=== PATIENT | female | born 1990 | race Hispanic/Latino ===

== ENCOUNTER 2017-12-09 20:50 | Emergency (ER) | payer OTHER ==
[~2017-12-09] VITALS: Ht 165.1 cm; Wt 73.6 kg
[2017-12-09 21:19] LABS: HEMATOCRIT 38.5 % (36.0-46.0); HEMOGLOBIN 13.7 G/DL (11.9-15.5); MCH 31.6 PG (29.0-34.0); MCHC 35.6 G/DL (30.0-36.0); MCV 88.7 FL (83-99); PLATELET COUNT 322 K/uL (156-360); RBC DIS.WIDTH-CV 12.4 % (11.8-14.6); RBC DIS.WIDTH-SD 40.2 % (39-53); RED BLOOD COUNT 4.34 M/uL (3.80-5.20)
[2017-12-09 21:31] LABS: CHLORIDE 108 mEq/L (99-109); POTASSIUM 4.2 mEq/L (3.7-5.4); SODIUM 141 mEq/L (136-147)
[2017-12-09 21:33] LABS: GLUCOSE 86 mg/dL (70-99)
[2017-12-09 21:36] LABS: CREATININE 0.7 mg/dL (0.6-1.3); GFR ESTIMATE (CALCULATED) > 59 mL/min/
[2017-12-09 21:37] LABS: UREA NITROGEN (BUN) 6 mg/dL (9-23)
[2017-12-09 21:45] LABS: QUANTITATIVE HCG < 4.0 MIU/ML
[2017-12-09 23:15] VITALS: BP 120/89
== END 2017-12-09 23:15 | disposition home or self-care (01) ==
LOC: RME 20:50 → EME 20:50 → RME 23:15
PROVIDERS: Physician Assistant
DX: R51 Headache (principal); R04.0 Epistaxis; R53.83 Other fatigue
CPT/HCPCS: 70450; 80048; 81003; 84702; 85027; 99281; 99284

== ENCOUNTER 2018-02-26 15:51 | Emergency (ER) | payer OTHER ==
[~2018-02-26] VITALS: Ht 165.1 cm; Wt 72.4 kg
[2018-02-26 16:37] LABS: HEMATOCRIT 37.7 % (36.0-46.0); MCHC 34.5 G/DL (30.0-36.0); MCV 89.8 FL (83-99); PLATELET COUNT 305 K/uL (156-360); RBC DIS.WIDTH-CV 12.4 % (11.8-14.6); RBC DIS.WIDTH-SD 40.8 % (39-53); WHITE BLOOD COUNT 8.6 K/uL (4.1-10.2)
[2018-02-26 16:45] LABS: ALBUMIN 4.2 g/dL (3.2-4.8)
[2018-02-26 16:46] LABS: CHLORIDE 104 mEq/L (99-109); POTASSIUM 3.7 mEq/L (3.7-5.4); SODIUM 136 mEq/L (136-147)
[2018-02-26 16:48] LABS: GLUCOSE 88 mg/dL (70-99); TOTAL PROTEIN 7.2 g/dL (6.4-8.3)
[2018-02-26 16:50] LABS: TOTAL BILIRUBIN 0.6 mg/dL (0.0-1.0)
[2018-02-26 16:51] LABS: ALKALINE PHOSPHATASE 99 IU/L (3-129)
[2018-02-26 16:52] LABS: CREATININE 0.7 mg/dL (0.6-1.3); GFR ESTIMATE (CALCULATED) > 59 mL/min/
[2018-02-26 16:53] LABS: AST (GOT) 20 IU/L (2-34); UREA NITROGEN (BUN) 8 mg/dL (9-23)
[2018-02-26 16:55] LABS: ALT (GPT) 18 IU/L (3-49); LIPASE 18 U/L (1.0-51.0)
[2018-02-26 17:26] LABS: QUANTITATIVE HCG 34617.6 MIU/ML
[2018-02-26] MEDS ORDERED: TYLENOL325 M2 PO (23:11)
[2018-02-26] MEDS ORDERED: ZOFRAN4 MG PO (23:11)
[2018-02-26 23:20] VITALS: BP 117/84
== END 2018-02-26 23:21 | disposition home or self-care (01) ==
LOC: EME 15:51
PROVIDERS: Emergency Medicine
DX: O99.281 Endocrine, nutritional and metabolic diseases complicating pregnancy, first trimester (principal); E86.0 Dehydration; O99.89 Other specified diseases and conditions complicating pregnancy, childbirth and the puerperium; R51 Headache; Z3A.01 Less than 8 weeks gestation of pregnancy; Z87.891 Personal history of nicotine dependence
CPT/HCPCS: 76801; 80053; 83690; 84702; 85027; 86900; 86901; 99281; 99285; J1885; J2405; J2765; J7030